=== PATIENT | male | born 1945 | race Caucasian/White ===

== ENCOUNTER 2020-06-24 15:12 | Emergency (ER) | payer MEDICARE ==
[2020-06-24] MEDS ORDERED: ENOXAPARIN SODIUM 100 MG/1 ML SQ ONE (15:33)
[2020-06-24 15:47] LABS: APPEARANCE,URINE Clear (CLEAR); BILIRUBIN,URINE Negative (NEGATIVE); COLOR,URINE Yellow (YELLOW); GLUCOSE, URINE (UA) Negative (NEGATIVE); KETONES,URINE Negative (NEGATIVE); LEUKOCYTE ESTERASE ,URINE Negative (NEGATIVE); NITRATE,URINE Negative (NEGATIVE); OCCULT BLOOD,URINE Negative (NEGATIVE); PROTEIN,URINE Negative (NEGATIVE)
[2020-06-24 15:55] LABS: AMPHET/METH SCREEN,URINE NEGATIVE (NEGATIVE); BARBITURATE SCREEN, URINE NEGATIVE (NEGATIVE); BENZODIAZEPINES SCREEN,URINE NEGATIVE (NEGATIVE); CANNABINOID SCREEN,URINE NEGATIVE (NEGATIVE); COCAINE SCREEN,URINE NEGATIVE (NEGATIVE); OPIATE SCREEN,URINE NEGATIVE (NEGATIVE); PHENCYCLIDINE SCREEN,URINE NEGATIVE (NEGATIVE)
[2020-06-24 15:58] LABS: BASOPHILS % (AUTO) 0.9 % (0.0-5.0); EOSINOPHILS % (AUTO) 3.4 % (0.0-8.0); HEMATOCRIT 47.2 % (42-54); LYMPHOCYTES % (AUTO) 11.6 % (21.0-51.0); MEAN CORPUSCULAR HEMOGLOBIN 31.4 pg (27.0-33.0); MEAN CORPUSCULAR HGB CONC 35.2 g/dL (32.0-36.0); MEAN CORPUSCULAR VOLUME 89.4 fL (79-99); MONOCYTES % (AUTO) 8.9 % (3.0-13.0); NEUTROPHILS % (AUTO) 74.9 % (40.0-77.0); PLATELET COUNT (AUTO) 242 K/uL (130-400); RED BLOOD CELL COUNT(AUTO) 5.28 MIL/uL (4.50-6.20); RED CELL DISTRIBUTION WIDTH 11.9 % (11.0-15.5); WHITE BLOOD COUNT (AUTO) 10.9 K/uL (4.8-10.8)
[2020-06-24 16:05] LABS: CREATININE 1.4 mg/dL (0.5-1.5); POTASSIUM 4.2 mmol/L (3.5-5.1)
[2020-06-24 16:12] LABS: ALBUMIN 3.7 g/dL (3.5-5.0); BILIRUBIN,TOTAL 0.6 mg/dL (0.2-1.0); TOTAL PROTEIN, SERUM 6.8 g/dL (6.0-8.3)
[2020-06-24 16:23] LABS: THYROID STIMULATING HORMONE 2.14 uIU/mL (0.36-3.74)
== END 2020-06-24 18:24 | disposition home or self-care (01) ==
LOC: EDH 15:12
DX: I48.0 Paroxysmal atrial fibrillation (principal); I49.9 Cardiac arrhythmia, unspecified; Z20.822 Contact with and (suspected) exposure to COVID-19; K21.9 Gastro-esophageal reflux disease without esophagitis; I10 Essential (primary) hypertension; Z72.0 Tobacco use; Z90.49 Acquired absence of other specified parts of digestive tract
CPT/HCPCS: 36415; 71045; 80053; 80305; 81003; 84439; 84443; 84481; 84484; 85025; 87426; 93005; 96372; 99285; J1650; U0003

== ENCOUNTER → 2022-07-24 | Outpatient (CLI) | payer MEDICARE ==
[~2022-07-24] MED LIST: REGADENOSON 0.4 MG/5 ML PF SYG IVP ONE
== END | disposition home or self-care (01) ==
LOC: SHCH 07-23 09:32
PROVIDERS: ATTEND Student in an Organized Health Care Education/Training Program
DX: R94.39 Abnormal result of other cardiovascular function study (principal); I48.91 Unspecified atrial fibrillation; I50.9 Heart failure, unspecified; Z79.899 Other long term (current) drug therapy
CPT/HCPCS: 78452; 96374; 93017; J2785; A9500 ×2

== ENCOUNTER 2023-02-27 06:25 | Day surgery (SDC) | payer MEDICARE ==
[2023-02-22 09:19] VITALS: BP 160/78; PULSE 87; RESP 16
[2023-02-22 09:21] LABS: BASOPHILS # (AUTO) 0.11 K/uL (0.00-0.20); BASOPHILS % (AUTO) 1.3 % (0.0-5.0); EOSINOPHILS # (AUTO) 0.51 K/uL (0.00-0.70); HEMATOCRIT 48.3 % (42-54); IMMATURE GRANULOCYTE ABSOLUTE 0.03 K/uL (0-1); LYMPHOCYTES % (AUTO) 23.6 % (21.0-51.0); MEAN CORPUSCULAR HEMOGLOBIN 33.4 pg (27.0-33.0); MEAN CORPUSCULAR HGB CONC 35.8 g/dL (32.0-36.0); MEAN CORPUSCULAR VOLUME 93.2 fL (79-99); MONOCYTES # (AUTO) 0.8 K/uL (0.1-1.0); MONOCYTES % (AUTO) 9.3 % (3.0-13.0); NEUTROPHILS % (AUTO) 59.4 % (40.0-77.0); PLATELET COUNT (AUTO) 202 K/uL (130-400); RED BLOOD CELL COUNT(AUTO) 5.18 MIL/uL (4.50-6.20); RED CELL DISTRIBUTION WIDTH 12.2 % (11.0-15.5); WHITE BLOOD COUNT (AUTO) 8.5 K/uL (4.8-10.8)
[2023-02-22 09:30] LABS: CREATININE 1.3 mg/dL (0.5-1.5); POTASSIUM 4.5 mmol/L (3.5-5.1)
[2023-02-22 09:31] LABS: INR 1.04 (0.85-1.15)
[2023-02-22 09:33] LABS: PARTIAL THROMBOPLASTIN TIME 33.6 SEC (26.3-35.5)
[~2023-02-27] VITALS: Ht 185.4 cm; Wt 107.7 kg
[2023-02-27] VITALS (7 sets, daily range): BP systolic 105–174; BP diastolic 64–101; PULSE 42–92; RESP 14–16
[~2023-02-27 06:25] MED LIST changes: +ACET-2521 PO; +AMIO200T68 PO; +APIX5TAB PO; +CETI10TA57 PO; +ESOM40CA54 PO; +LISI20TA24 PO; +METO-409 PO; -REGADENOSON 0.4 MG/5 ML PF SYG IVP ONE; +ROSU20TA73 PO; +VIT1CAPS47 PO
[2023-02-27] MEDS ORDERED: 0.9%NACL 1000ML 1,000 ML IV ONE (07:25)
[2023-02-27] MEDS ORDERED: LIDOCAINE PF 100MG/5ML (2%) SYRINGE 5ML ONE (08:33)
[2023-02-27] MEDS ORDERED: PROPOFOL 10 MG/ML 20ML VIAL IV ONE (08:33)
== END 2023-02-27 10:25 | disposition home or self-care (01) ==
LOC: DAH 06:25
PROVIDERS: ATTEND Internal Medicine Cardiovascular Disease
DX: I48.19 Other persistent atrial fibrillation (principal); I42.0 Dilated cardiomyopathy; E78.5 Hyperlipidemia, unspecified; I10 Essential (primary) hypertension; I50.9 Heart failure, unspecified; F17.210 Nicotine dependence, cigarettes, uncomplicated; Z82.49 Family history of ischemic heart disease and other diseases of the circulatory system; Z72.89 Other problems related to lifestyle; Z79.899 Other long term (current) drug therapy; Z98.890 Other specified postprocedural states
CPT/HCPCS: 80048; 85025; 85610; 85730; 36415; 92960; 93005 ×2; J7030; J2001; J2704; A4620; A4215; A4223 ×3; A4657; A7002; A4222; A4221; A4663; A4216; A4606; 99156; J3490

== ENCOUNTER → 2023-11-29 | Outpatient (CLI) | payer MEDICARE ==
[~2023-11-29] MED LIST changes: -ESOM40CA54 PO; +ESOM40CA66 PO
== END | disposition home or self-care (01) ==
LOC: SHCH 12:45
PROVIDERS: ATTEND Student in an Organized Health Care Education/Training Program
DX: I11.0 Hypertensive heart disease with heart failure (principal); I50.20 Unspecified systolic (congestive) heart failure; I48.0 Paroxysmal atrial fibrillation; I48.91 Unspecified atrial fibrillation
CPT/HCPCS: 93306

== ENCOUNTER 2024-05-22 04:59 | Emergency (ER) | payer MEDICARE ==
[~2024-05-22] VITALS: Ht 185.4 cm; Wt 97.5 kg
[~2024-05-22 04:59] MED LIST changes: -ROSU20TA73 PO; +ROSU20TA98 PO
--- NOTE | 2024-05-22 05:19 | ERN ---
ED Note History of Present Illness Stated Complaint: PALPITATIONS Chief Complaint: Palpitations Time Seen by MD: 05:06 Dictation: This is a 78-year-old obese male who came into the emergency room complaints of palpitations. He stated that he fell asleep and woke up at midnight went outside to walk about [id number] steps which is not unusual for him and when he came back home he drank a shot of liquor and tried to sleep again. He woke up with uncomfortable feeling and he checked his pulse ox which showed a heart rate of about 120-125 and he woke his up and they decided to come to the ER for further evaluation he has a known history of atrial fibrillation and underwent a cardioversion in the past. He stated that as they were close to [facility] will his heart rate came down to 60s. He denied any real chest pain with any radiation. No loss of consciousness. No nausea vomitings. Temperature 96.7 pulse 71 respirations 16 blood pressure 161/97 with a pulse oximetry of 97% on room air His chronic medical problems include hypertension, atrial fibrillation status post cardioversion on 03/01/2023, patient has been on Eliquis since then, gastroesophageal reflux disease, hypercholesterolemia. Patient does give a history of heavy snoring and quitting breathing and gasping for air in the night and he was recommended a sleep study which he has not pursued stating that he does not want to wear PAP therapy [employer] Dr. Glynn Allergies: Coded Allergies: No Known Allergies (Unverified Allergy, Unknown, 06/24/20) Home Meds Reported Medications Acetaminophen (Arthritis Pain Relief) 650 Mg Tablet.er, 650 MG PO [id number] PRN for PAIN, TAB 02/22/23 Cetirizine HCl (Cetirizine HCl) 10 Mg Tablet, 10 MG PO DAILY, TAB 02/22/23 Vit C/E/Zn/Coppr/Lutein/Zeaxan (Preservision Areds 2 Softgel) 250MG-90MG Capsule, 2 EACH PO DAILY, CAP 02/22/23 Lisinopril (Lisinopril) 20 Mg Tablet, 20 MG PO DAILY, TAB 02/22/23 Metoprolol Succinate (Metoprolol Succinate) 100 Mg Tab.er.24h, 100 MG PO BID, TAB 02/22/23 Amiodarone HCl (Amiodarone HCl) 200 Mg Tablet, 200 MG PO BID, TAB 02/22/23 Esomeprazole Magnesium (Esomeprazole Magnesium) 40 Mg Capsule.dr, 40 MG PO DAILY, CAP 02/22/23 Rosuvastatin Calcium (Rosuvastatin Calcium) 20 Mg Tablet, 20 MG PO DAILY, TAB 02/22/23 Apixaban (Eliquis) 5 Mg Tablet, 5 MG PO BID, TAB 02/22/23 Past Medical History Past Medical History: A-Fib, Hypertension, Other Additional Past Medical Hx: CARDIOVERSION 2022 Surgical History: None Family History: Negative Social History: Smokers (Quit smoking), ETOH RN Note Reviewed/Agreed w/PFSH: Yes Review of System Dictation Constitutional: Negative for fever,chills, and weight loss Eyes: Negative for injury, pain,redness, and discharge ENT: Negative for injury,pain or swelling Cardiovascular: Positive for chest discussed, palpitations, and denied edema Respiratory: Negative for shortness of breath, cough, and wheezing, Abdomen/GI: Negative for abdominal pain, nausea, vomiting, diarrhea, and constipation Back: Negative for injury and pain : Negative for injury, bleeding and discharge MS/Extremity: Negative for injury and deformity Skin: Negative for rash, and discoloration Neuro: Negative for headache, weakness, numbness, tingling, and seizure Psych: Negative for suicide ideation, homicidal ideation, and hallucinations Initial Vital Sign VS Vital Signs Date Time Temp Pulse Resp B/P (MAP) Pulse Ox O2 Delivery O2 Flow Rate FiO2 05/22/24 05:01 96.6 71 16 161/97 97 Room Air 05/22/24 05:13 0 21 Physical Exam Dictation General: awake, alert, NAD obese male Head/Face: Normocephalic, atraumatic Eyes: PERRL, EOMI, vision at baseline ENT: oral cavity clear, TMs clear, no signs of infection Neck: Trachea midline, supple, no nuchal rigidity Cardiovascular: RRR, normal S1/S2, No MRGs, no JVD Respiratory: CTAB, no respiratory distress, No rales or wheezes Abdomen: Soft, non-tender, non-distended, normal bowel sounds, no guarding or rebound. Skin: Warm, dry, normal turgor, no rash MS/Extremity: Pulses equal, no cyanosis, neurovascular intact, FROM Neuro: COAx4, GCS 15, strength 5/5, CN 2-12 intact, normal cerebellar exam, normal gait, Psych: Normal behavior, mood, and affect normal Extremities-trace edema without any palpable cords, Homans sign is negative Results (Laboratory/Radiology) Laboratory/Radiology Laboratory Tests Test 05/22/24 05:16 05/22/24 05:38 White Blood Count 8.4 K/uL (4.8-10.8) Red Blood Count 5.12 MIL/uL (4.50-6.20) Hemoglobin 16.1 g/dL (14.0-18.0) Hematocrit 46.3 % (42-54) Mean Corpuscular Volume 90.4 fL (79-99) Mean Corpuscular Hemoglobin 31.4 pg (27.0-33.0) Mean Corpuscular Hemoglobin Concent 34.8 g/dL (32.0-36.0) Red Cell Distribution Width 12.4 % (11.0-15.5) Platelet Count 233 K/uL (130-400) Mean Platelet Volume 10.2 fL (7.5-10.5) Immature Granulocyte % (Auto) 0.2 % (0-1) Neutrophils (%) (Auto) 59.5 % (40.0-77.0) Lymphocytes (%) (Auto) 24.4 % (21.0-51.0) Monocytes (%) (Auto) 10.5 % (3.0-13.0) Eosinophils (%) (Auto) 4.4 % (0.0-8.0) Basophils (%) (Auto) 1.0 % (0.0-5.0) Neutrophils # (Auto) 5.0 K/uL (1.8-7.7) Lymphocytes # (Auto) 2.1 K/uL (1.0-4.8) Monocytes # (Auto) 0.9 K/uL (0.1-1.0) Eosinophils # (Auto) 0.37 K/uL (0.00-0.70) Basophils # (Auto) 0.08 K/uL (0.00-0.20) Absolute Immature Granulocyte (auto 0.02 K/uL (0-1) Nucleated Red Blood Cells 0.0 % (0.0-0.19) Prothrombin Time 11.6 SEC (9.6-11.6) Prothromb Time International Ratio 1.04 (0.85-1.15) Activated Partial Thromboplast Time 30.6 SEC (26.3-35.5) Sodium Level 141 mmol/L (136-145) Potassium Level 4.1 mmol/L (3.5-5.1) Chloride Level 106 mmol/L (101-111) Carbon Dioxide Level 29 mmol/L (21-32) Blood Urea Nitrogen 12 mg/dL (7-18) Creatinine 1.2 mg/dL (0.5-1.3) Glomerular Filtration Rate Calc 62 mL/min (>90) Random Glucose 98 mg/dL (70-105) Total Calcium 8.4 mg/dL (8.5-10.1) L Magnesium Level 2.10 mg/dL (1.80-2.40) Total Creatine Kinase 71 U/L (21-232) Troponin I High Sensitivity 6 ng/L (4-75) B-Type Natriuretic Peptide 70 pg/mL (0-100) Troponin I < 0.05 ng/mL (0.00-0.05) Labs Reviewed?: Yes EKG Comment: Twelve lead EKG done on 05/22/2024 at 5:06 a.m. showed a heart rate of 64, GA interval 198, QRS 126, QT/QTC 458/473 Impression normal sinus rhythm more towards bradycardia, intraventricular conduction delay Q's in the inferior leads. Overall somewhat of a low voltage no acute ST elevations noted. Interpreted by ER MD Dr. Pruett ED Course ED Course Orders Procedure Category Date Status Time Vital Signs Per CPOE 05/22/24 Transmitted Routine 05:01 B-Type Natriuretic LAB 05/22/24 Complete Peptide 05:01 Chest 1vw RAD 05/22/24 Taken 05:01 12 Lead Ekg Tracing- EKG 05/22/24 Logged Technical 05:01 Oxygen By Nc/Pulse Ox CPOE 05/22/24 Transmitted 05:01 Maintain Iv CPOE 05/22/24 Transmitted 05:01 Iv Insertion CPOE 05/22/24 Transmitted 05:01 Cardiac Monitoring CPOE 05/22/24 Transmitted 05:01 Pulse Oximetry With CPOE 05/22/24 Transmitted Vs And Prn 05:01 Cbc With Differential LAB 05/22/24 Complete 05:01 Activity: Br W/Brp CPOE 05/22/24 Transmitted With Assist 05:01 Creatine Kinase, Total LAB 05/22/24 Complete 05:01 Troponin I High LAB 05/22/24 Complete Sensitivity 05:01 Urinalysis Profile LAB 05/22/24 Logged 05:01 Troponin Poc Order LAB 05/22/24 Complete Only 05:01 Bedside Troponin-I LAB.ER 05/22/24 In Process (Poc) 05:01 Basic Metabolic Panel LAB 05/22/24 Complete 05:01 Magnesium LAB 05/22/24 Complete 05:48 Pt And Ptt LAB 05/22/24 Complete 05:48 Vital Signs Date Time Temp Pulse Resp B/P (MAP) Pulse Ox O2 Delivery O2 Flow Rate FiO2 05/22/24 05:17 65 16 138/72 96 Room Air* 0 21 05/22/24 05:13 98.6 72 18 135/66 99 Room Air* 0 21 05/22/24 05:01 96.6 71 16 161/97 97 Room Air We will perform diagnostic labs, advanced imaging and administer medications according to the patient's complaint. Once the results are available, will review and personally interpreted the labs to rule out any acute life- threatening emergency the trach require immediate intervention and treatment. I will then re-evaluate the patient after treatment and diagnostic exams have return to determine whether the patient requires any further testing, can safely be discharged home or need further admission to hospital for additional treatment and evaluation. Labs reviewed CBC BNP 7 with a normal limits troponins unremarkable. Brain natriuretic peptide 70. Chest x-ray no new changes chronic markings no focal infiltrate noted. I went over all the labs EKG with the patient and spouse and reassured them that the heart rate is consistently normal with normal blood pressure at this time. Transient palpitations could be related to alcohol intake . I recommended that he follow up with Dr. Glynn as outpatient Medical Decision Making MDM MDM: Differential diagnosis: Untreated sleep apnea triggering the atrial fibrillation, alcohol intake, cardiac ischemia, hypoxia triggering AFib Rationale: Tests considered and ordered secondary to shared decision making include: Previous outside records reviewed: Old ER visits. Risk of complication and/or morbidity or mortality of patient management: None Medications-Per medication reconciliation Need for hospitalization: Patient does not meet criteria for hospitalization. Need for emergency major/minor surgery: No There are no social concerns with this patient. Prescription drug management Prescriptions will include symptomatic care Patient's prior external medical records from other ER visits were reviewed by me as indicated. Prior testing and results from previous visits were reviewed. Prior tests were taken into account with medical decision making and resource utilization, independent historian/historians were used to obtain complete medical history. I independently interpreted the test that were performed, results were reviewed by me and considered findings on radiology if ordered. Medical management and examination interpretation discussions were had by me with other qualified healthcare professionals as indicated for the patient's care. Problem List Problem List: (1) Palpitations (2) History of atrial fibrillation (3) halfway current use of anticoagulant (4) Hypercholesterolemia (5) Hypertension DX & DISP Disposition: Discharge Departure Impression: Primary Impression: Palpitations Additional Impressions: History of atrial fibrillation, termite technician current use of anticoagulant, Hypercholesterolemia, Hypertension Condition: Stable Additional Instructions: Patient and the caregiver have been informed of all the diagnostic tests and the imaging conducted during the today's visit to the emergency room and has verbalized understanding of the results I have personally reviewed and interpreted all diagnostic exams performed here in the ER today as well as the vital signs documented by the nursing staff. The patient is now being discharged to home and should follow up with the primary care physician or the specialist as directed by the ER staff. Follow-up with primary care provider in 1 to 2 days. Take medications as directed here in the emergency room. Okay to continue home medications unless otherwise discussed during your visit in the emergency room today. Return to your nearest emergency room if symptoms worsen or if there is no improvement. Call 911 if you need immediate assistance. Take Tylenol or Motrin [id number] as needed and if no contraindications are present. Increase oral hydration. A wound culture or urine culture was ordered here in the emergency room department please follow-up with primary care provider and advise them to get repeat ports from our facility. If you had any Gurinder wrap/splints that were applied here, please do not remove them until you see your primary care or specialty. Referrals: VANESSA JAMES MD (PCP) GABRIELA PRUETT MD May 22, 2024 05:19
[2024-05-22 05:30] LABS: BASOPHILS # (AUTO) 0.08 K/uL (0.00-0.20); EOSINOPHILS # (AUTO) 0.37 K/uL (0.00-0.70); EOSINOPHILS % (AUTO) 4.4 % (0.0-8.0); HEMATOCRIT 46.3 % (42-54); IMMATURE GRANULOCYTE ABSOLUTE 0.02 K/uL (0-1); LYMPHOCYTES # (AUTO) 2.1 K/uL (1.0-4.8); LYMPHOCYTES % (AUTO) 24.4 % (21.0-51.0); MEAN CORPUSCULAR HEMOGLOBIN 31.4 pg (27.0-33.0); MEAN CORPUSCULAR HGB CONC 34.8 g/dL (32.0-36.0); MEAN CORPUSCULAR VOLUME 90.4 fL (79-99); MONOCYTES # (AUTO) 0.9 K/uL (0.1-1.0); MONOCYTES % (AUTO) 10.5 % (3.0-13.0); NEUTROPHILS % (AUTO) 59.5 % (40.0-77.0); PLATELET COUNT (AUTO) 233 K/uL (130-400); RED BLOOD CELL COUNT(AUTO) 5.12 MIL/uL (4.50-6.20); RED CELL DISTRIBUTION WIDTH 12.4 % (11.0-15.5); WHITE BLOOD COUNT (AUTO) 8.4 K/uL (4.8-10.8)
[2024-05-22 05:33] LABS: CREATININE 1.2 mg/dL (0.5-1.3); POTASSIUM 4.1 mmol/L (3.5-5.1)
[2024-05-22 05:54] LABS: B-TYPE NATRIURETIC PEPTIDE 70 pg/mL (0-100)
[2024-05-22 05:59] LABS: INR 1.04 (0.85-1.15); PROTHROMBIN TIME 11.6 SEC (9.6-11.6)
[2024-05-22 06:00] LABS: PARTIAL THROMBOPLASTIN TIME 30.6 SEC (26.3-35.5)
--- NOTE | 2024-05-22 06:15 | EKG ---
[facility] Test Date: 2024-05-22 Test Time: 05:06:42 Pat Name: MARY WASSERMAN Department: ED Room: Gender: M Framing Manager: [id number] : 1945 Requested By: GABRIELA PRUETT Order Number: [id number] Reading MD: Christian Hines Measurements Intervals [place] Rate: 64 P: 26 MN: 198 QRS: 226 QRSD: 126 T: 1 QT: 458 QTc: 473 Interpretive Statements Sinus rhythm Nonspecific intraventricular conduction delay Inferior infarct, old Consider anterior infarct Compared to ECG 02/27/2023 09:09:08 Ventricular premature complex(es) no longer present Sinus pause or arrest no longer present T-wave abnormality no longer present Myocardial infarct finding still present Electronically Signed On 05-22-2024 17:40:03 INTENSIVE CARE NURSE by Christian Hines Please click the below link to view image of tracing.
[2024-05-22 06:24] VITALS: BP 138/72; PULSE 70; RESP 16; TEMP 98.6; O2SAT 98
--- NOTE | 2024-05-22 08:40 | HMCIMG ---
Exam Type: CHEST 1VW Clinical Information: CHEST PAIN Comparison: None Findings: The lungs are clear of infiltrates. The heart is normal in size. The bony and soft tissue structures of the chest are unremarkable. Impression: Clear lungs.
== END 2024-05-22 06:27 | disposition home or self-care (01) ==
LOC: EDH 04:59
DX: R00.2 Palpitations (principal); E78.00 Pure hypercholesterolemia, unspecified; F17.200 Nicotine dependence, unspecified, uncomplicated; I10 Essential (primary) hypertension; I21.9 Acute myocardial infarction, unspecified; I48.91 Unspecified atrial fibrillation; Z79.01 Long term (current) use of anticoagulants; Z79.899 Other long term (current) drug therapy
CPT/HCPCS: 36415; 71045; 80048; 82550; 83735; 83880; 84484; 85025; 85610; 85730; 93005; 99285